=== PATIENT | male | born 1945 | race Caucasian/White ===

== ENCOUNTER 2017-04-13 10:10 | Outpatient (CLI) | payer MEDICARE ==
[2017-04-13 10:55] LABS: Anion Gap 9 mmol/L (10-20); BUN (Urea Nitrogen) 20 mg/dL (8.4-25.7); Calc. Creatinine Clearance 0 mL/min (70-130); Calcium 8.2 mg/dL (7.8-10.44); Carbon Dioxide 30 mmol/L (23-31); Chloride 108 mmol/L (98-107); Estimated GFR-MDRD 77; Glucose 101 mg/dL (83-110); Potassium 3.5 mmol/L (3.5-5.1); Sodium 143 mmol/L (136-145)
--- NOTE | 2017-04-13 11:53 | RAD ---
TWO VIEW CHEST: History: Bronchitis. Comparison: 03-20-17 portable exam. FINDINGS: There is increase in the alveolar opacity in the left mid lung when compared to prior study indicati ng new alveolar infiltrate. The linear parenchymal opacity in the right mid lung is seen to the ches t wall and appears relatively stable. There is evidence of bilateral effusions, similar in appearanc e. There is cardiomegaly and vascular engorgement, similar in appearance. IMPRESSION: 1. Increasing opacity in the left midlung consistent with new alveolar infiltrate. 2. Other findings as above appear unchanged. Incidentally noted is small lung herniation from the ri ght lateral chest wall which has been described previously. POS: [facility]
== END 2017-04-13 10:11 | disposition home or self-care (01) ==
LOC: MADLABBHPM 10:10
PROVIDERS: ATTEND Family Medicine
DX: E03.9 Hypothyroidism, unspecified (principal); R91.8 Other nonspecific abnormal finding of lung field
CPT/HCPCS: 36415; 71020; 80048